=== PATIENT | female | born 1970 | race Caucasian/White ===

== ENCOUNTER 2016-06-10 22:59 | Emergency (ER) | payer OTHER ==
[2016-06-11] MEDS ORDERED: SULFAMETHOXAZOLE/TRIMETHOPRIM 800-160 MG TABLET PO ONE (00:49)
--- NOTE | 2016-06-11 00:54 | ER Document Report ---
ED ENT - General Chief Complaint: Ear Pain Stated Complaint: EAR ACHE Mode of Arrival: Ambulatory Information source: Patient Notes: Pt is a 45 year old female who presents to the ER today for left ear pain that started today with 1 week of cough/cold symptoms. She denies sob, wheezing, vomiting, diarrhea, fever/chills. TRAVEL OUTSIDE OF THE [place] IN LAST 30 DAYS: No - Related Data Allergies/Adverse Reactions: amoxicillin Allergy (Verified 06/10/16 23:14) latex Allergy (Verified 06/10/16 23:14) Past Medical History - General Information source: Patient - Social History Smoking Status: Never Smoker Chew tobacco use (# tins/day): No Frequency of alcohol use: None Drug Abuse: None Family History: Reviewed & Not Pertinent Patient has suicidal ideation: No Patient has homicidal ideation: No Renal/ Medical History: Denies: Hx Peritoneal Dialysis Review of Systems - Review of Systems Constitutional: No symptoms reported EENT: See HPI Cardiovascular: No symptoms reported Respiratory: No symptoms reported Gastrointestinal: No symptoms reported Genitourinary: No symptoms reported Female Genitourinary: No symptoms reported Musculoskeletal: No symptoms reported Skin: No symptoms reported Hematologic/Lymphatic: No symptoms reported Neurological/Psychological: No symptoms reported Physical Exam - Vital signs Vitals: Temp Pulse Resp BP Pulse Ox 98.5 F 95 18 128/80 H 97 06/10/16 23:12 06/10/16 23:12 06/10/16 23:12 06/10/16 23:12 06/10/16 23:12 - Notes Notes: PHYSICAL EXAMINATION: GENERAL: Mildly ill-appearing, in no acute distress. HEAD: Atraumatic, normocephalic. EYES: Pupils equal round and reactive to light, extraocular movements intact, sclera anicteric, conjunctiva are normal. ENT: ear canals without erythema or foreign body, left TM erythematous and dull , right TM pearly vides with good bony landmarks, nares with mucoid discharge, oropharynx clear without exudates. Moist mucous membranes. NECK: Normal range of motion, supple without lymphadenopathy LUNGS: CTAB and equal. No wheezes rales or rhonchi. HEART: Regular rate and rhythm without murmurs EXTREMITIES: Normal range of motion, no pitting edema. No cyanosis. NEUROLOGICAL: Cranial nerves grossly intact. Normal sensory/motor exams. PSYCH: Normal mood, normal affect. SKIN: Warm, Dry, normal turgor, no rashes or lesions noted Course - Vital Signs Vital signs: Temp Pulse Resp BP Pulse Ox 98.4 F 95 16 107/64 99 06/11/16 01:00 06/11/16 01:00 06/11/16 01:00 06/11/16 01:00 06/11/16 01:00 Discharge - Discharge Clinical Impression: Left otitis media Qualifiers: Otitis media type: unspecified Chronicity: unspecified Qualified Code(s): H66.92 - Otitis media, unspecified, left ear URI (upper respiratory infection) Qualifiers: URI type: acute nasopharyngitis (common cold) Qualified Code(s): J00 - Acute nasopharyngitis [common cold] Disposition: HOME, SELF-CARE Additional Instructions: Return immediately for any new or worsening symptoms. Follow up with primary care provider, call tomorrow to make followup appointment. Prescriptions: Fluticasone Propionate [Flonase Allergy Relief] 15.8 ml NS BID #1 spray.susp Sulfamethoxazole/Trimethoprim [Bactrim Ds Tablet] 1 each PO BID #20 tablet Forms: Return to Work
[2016-06-11 01:05] VITALS: BP 107/64
== END 2016-06-11 01:00 | disposition home or self-care (01) ==
LOC: ER 22:59
DX: H66.92 Otitis media, unspecified, left ear (principal); J00 Acute nasopharyngitis [common cold]; H92.02 Otalgia, left ear; R05 Cough; Z88.0 Allergy status to penicillin; Z91.041 Radiographic dye allergy status
CPT/HCPCS: 99282